=== PATIENT | male | born 1995 | race Caucasian/White ===

== ENCOUNTER 2016-07-22 04:41 | Emergency (ER) | payer BC ==
[2016-07-22 04:59] VITALS: BP 148/118
[2016-07-22] MEDS ORDERED: Diphth/Teta/Acell Pertusis* 0.5 ML VIAL ** FOR 6 WKS TO 7 YRS OLD IM ONE (05:36)
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
== END 2016-07-22 05:50 | disposition home or self-care (01) ==
LOC: ED 04:41
DX: S60.519A Abrasion of unspecified hand, initial encounter (principal); V49.9XXA Car occupant (driver) (passenger) injured in unspecified traffic accident, initial encounter; Y93.9 Activity, unspecified; Y92.89 Other specified places as the place of occurrence of the external cause; Y99.9 Unspecified external cause status
CPT/HCPCS: 96372; 99282

== ENCOUNTER 2016-10-07 08:02 | Emergency (ER) | payer BC ==
[2016-10-07 08:10] VITALS: BP 131/69
[2016-10-07] MEDS ORDERED: Tetan/Diph/Pertus SYR(Tdap)* 0.5 ML SYR(BOOSTRIX) use SYR IM ONE (08:17)
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
[2016-10-07] MEDS ORDERED: Ibuprofen TAB* 400 MG PO ONE (08:20)
--- NOTE | 2016-10-07 08:50 | RAD ---
HISTORY: Swelling pain of distal right radius COMPARISONS: None VIEWS: 3, Frontal, lateral, and oblique views of the right wrist FINDINGS: BONE DENSITY: Normal. BONES: There is no displaced fracture. JOINTS: There is no arthropathy. ALIGNMENT: There is no dislocation. SOFT TISSUES: Unremarkable. OTHER FINDINGS: None. IMPRESSION: NO ACUTE OSSEOUS INJURY. IF SYMPTOMS PERSIST, RECOMMEND REPEAT IMAGING.
--- NOTE | 2016-10-07 08:51 | RAD ---
HISTORY: Swelling, pain, distal radius trauma of right wrist and hand COMPARISONS: None VIEWS: 4, Frontal, lateral, and oblique views of the right hand FINDINGS: BONE DENSITY: Normal. BONES: There is no displaced fracture. JOINTS: There is no arthropathy. ALIGNMENT: There is no dislocation. SOFT TISSUES: Unremarkable. OTHER FINDINGS: None. IMPRESSION: NO ACUTE OSSEOUS INJURY. IF SYMPTOMS PERSIST, RECOMMEND REPEAT IMAGING.
[2016-10-07] MEDS ORDERED: Lidocaine 2% PF * 5 ML VIAL INJ ONE (09:00)
== END 2016-10-07 09:52 | disposition home or self-care (01) ==
LOC: UCCORT 08:02
DX: S60.221A Contusion of right hand, initial encounter (principal); V89.9XXA Person injured in unspecified vehicle accident, initial encounter; V98.8XXA Other specified transport accidents, initial encounter; Y93.I9 Activity, other involving external motion; Z23 Encounter for immunization
CPT/HCPCS: 90471; 90715; 99213; A9270-GY; G0463

== ENCOUNTER 2017-01-22 21:15 | Emergency (ER) | payer BC ==
[2017-01-22 22:19] VITALS: BP 164/99
[2017-01-22] MEDS ORDERED: Clindamycin CAP* 150 MG PO ONE (22:41)
[2017-01-22] MEDS ORDERED: Ketorolac INJ* 60 MG/2 ML VIAL IM ONE (22:42)
--- NOTE | 2017-01-22 22:53 | UC ---
Throat Pain/Nasal Mikhail HPI - HPI Summary HPI Summary: SORE THROAT AND TONSIL SWELLING FOR FIVE DAYS. PAIN WITH SWALLOWING. RIGHT SIDE WORSE THAN LEFT. CHILLS HOT FLASHES. - History of Current Complaint Chief Complaint: UCGeneralIllness Stated Complaint: SORE THROAT Time Seen by Provider: 01/22/17 22:12 Hx Obtained From: Patient Onset/Duration: Gradual Onset, Lasting Days, Worse Since - PROGRESSIVE Severity: Moderate Cough: None Associated Signs & Symptoms: Positive: Dysphagia, Hoarseness - Epiglottits Risk Factors Epiglottis Risk Factors: Negative - Allergies/Home Medications Allergies/Adverse Reactions: Allergies Allergy/AdvReac Type Severity Reaction Status Date / Time No Known Allergies Allergy Verified 01/22/17 22:19 Home Medications: Home Medications Ibuprofen TAB* [Motrin TAB* 800 MG] 800 mg PO ONCE 01/22/17 [History Confirmed 01/22/17] PMH/Surg Hx/FS Hx/Imm Hx Previously Healthy: Yes - Surgical History Surgical History: None - Family History Known Family History: Positive: None, Respiratory Disease - mother [place] lung Negative: Diabetes - Social History Occupation: Employed Full-time Lives: With Family Alcohol Use: Weekly Alcohol Amount: 4-5 drinks on average Substance Use Type: None Substance Use Comment - Amount & Last Used: smoke a bowl earlier tonight Smoking Status (MU): Current Some Day Smoker Type: Cigars Cessation Counseling: Patient Advised to Stop - Immunization History Most Recent Tetanus Shot: unknown Review of Systems Constitutional: Chills, Fatigue Skin: Negative Eyes: Negative ENT: Sore Throat Respiratory: Negative Cardiovascular: Negative Gastrointestinal: Negative Genitourinary: Negative Motor: Negative Neurovascular: Negative Musculoskeletal: Negative Neurological: Negative Psychological: Negative Is Patient Immunocompromised?: No All Other Systems Reviewed And Are Negative: Yes Physical Exam Triage Information Reviewed: Yes Appearance: Well-Nourished, Ill-Appearing, Pain Distress - MODERATE Vital Signs: Initial Vital Signs Temp 98.3 F 01/22/17 22:16 Pulse 118 01/22/17 22:16 Resp 18 01/22/17 22:16 BP 164/99 01/22/17 22:16 Pulse Ox 100 01/22/17 22:16 Eye Exam: Normal ENT: Positive: Pharyngeal erythema, TMs normal, Tonsillar swelling - RIGHT > LEFT; AIRWAY PATENT, TONSILS LARGE BUT NOT TOUCHING., Tonsillar exudate Dental Exam: Normal Neck exam: Normal Neck: Positive: Supple, Nontender, No Lymphadenopathy. Negative: Nuchal Rigidity, Tenderness @ Respiratory Exam: Normal Respiratory: Positive: Chest non-tender, Lungs clear, Normal breath sounds, No respiratory distress, No accessory muscle use Cardiovascular Exam: Normal Cardiovascular: Positive: RRR, No Murmur, Pulses Normal Abdominal Exam: Normal Abdomen Description: Positive: Nontender, No Organomegaly Musculoskeletal Exam: Normal Musculoskeletal: Positive: Strength Intact, ROM Intact Neurological Exam: Normal Psychological Exam: Normal Psychological: Positive: Normal Response To Family Skin Exam: Normal Throat Pain/Nasal Course/Dx - Course Course Of Treatment: DUE TO DYSYMMETRY AND SIZE OF TONSILLAR SWELLING, I ELECTED TO START PATIENT ON CLINDAMYCIN AND ADVISED HIM TO FOLLOW UP WITH ED IMMEDIATELY OR CALL 911 IF SYMPTOMS CONTINUE, IF TONSILLAR SWELLING CONTINUES OR IF NEW SYMPTOMS DEVELOP. PATIENT AGREED WITH PLAN. - Differential Dx/Diagnosis Differential Diagnosis/HQI/PQRI: Mononucleosis, Peritonsillar Abscess, Pharyngitis, Tonsillitis, URI Provider Diagnoses: TONSILLITIS Discharge - Discharge Plan Condition: Stable Disposition: HOME Prescriptions: Clindamycin Cap(NF) [Clindamycin Cap 300 mg Cap(NF)] 300 mg PO TID #30 cap Patient Education Materials: Peritonsillar Abscess (ED), Tonsillitis (ED) Forms: *Work Release Referrals: Sandra Nguyen MD [Primary Care Provider] - Additional Instructions: PLEASE SEEK IMMEDIATE EVALUATION AT THE EMERGENCY DEPARTMENT IF YOUR CONDITION WORSENS OR IF NEW SYMPTOMS DEVELOP.
== END 2017-01-22 23:06 | disposition home or self-care (01) ==
LOC: UCCORT 21:15
DX: J03.90 Acute tonsillitis, unspecified (principal); Z72.0 Tobacco use
CPT/HCPCS: 87651; 96372; 99212; A9270-GY; G0463; J1885

== ENCOUNTER 2017-10-05 18:59 | Emergency (ER) | payer BC ==
[2017-10-05 19:20] VITALS: BP 149/89
--- NOTE | 2017-10-05 19:32 | ED ---
Lower Extremity - HPI Summary HPI Summary: 21 yr old male with bilateral foot pain, right greater than left foot, right ankle pain. Onset yesterday when a ladder kicked out from him and he fell about 6 feet, landing on his feet and twisting the right ankle. He waited a day hoping would get better, but he has a lot of swelling to the right ankle and foot now. Pain is moderate, and worse with weight bearing. he denies leg , hip, pelvis, back, chest, neck and head pain. no LOC. - History of Current Complaint Chief Complaint: UCLowerExtremity Stated Complaint: RICHI FOOT INJURY Time Seen by Provider: 10/05/17 19:17 Pain Intensity: 8 - Allergies/Home Medications Allergies/Adverse Reactions: Allergies Allergy/AdvReac Type Severity Reaction Status Date / Time No Known Allergies Allergy Verified 10/05/17 19:11 PMH/Surg Hx/FS Hx/Imm Hx Endocrine/Hematology History: Denies: Hx Thyroid Disease Cardiovascular History: Denies: Hx Hypertension Respiratory History: Denies: Hx Asthma GI History: Denies: Hx Ulcer Neurological History: Denies: Hx Transient Ischemic Attacks (TIA) - Surgical History Surgery Procedure, Year, and Place: WISDOM TEETH EXTRACTIONS - Immunization History Date of Tetanus Vaccine: unk Date of Influenza Vaccine: none Infectious Disease History: No Infectious Disease History: Denies: Hx Clostridium Difficile, Hx Hepatitis, Hx Human Immunodeficiency Virus (HIV), Hx of Known/Suspected MRSA, Hx Shingles, Hx Tuberculosis, Hx Known/ Suspected VRE, Hx Known/Suspected VRSA, History Other Infectious Disease, Traveled Outside the [place] in Last 30 Days - Family History Known Family History: Positive: None, Respiratory Disease - mother [place] lung Negative: Diabetes - Social History Alcohol Use: Occasionally Alcohol Amount: 4-5 drinks on average Substance Use Type: Reports: Marijuana Substance Use Comment - Amount & Last Used: smoke a bowl earlier tonight Smoking Status (MU): Never Smoked Tobacco Type: Cigars Amount Used/How Often: 1 CAN PER WEEK Review of Systems Constitutional: Negative Positive: Other - bilateral foot and right ankle pain Positive: Bruising - right ankle Negative: Headache, Weakness, Numbness Psychological: Normal All Other Systems Reviewed And Are Negative: Yes Physical Exam Triage Information Reviewed: Yes Vital Signs On Initial Exam: Initial Vitals Temp Pulse Resp BP Pulse Ox 99.3 F 104 17 149/89 98 10/05/17 19:12 10/05/17 19:12 10/05/17 19:12 10/05/17 19:12 10/05/17 19:12 Vital Signs Reviewed: Yes Appearance: Positive: Well-Appearing, No Pain Distress Skin: Positive: Warm, Other - bruising right ankle medial and lateral malleolus areas Head/Face: Positive: Normal Head/Face Inspection Eyes: Positive: EOMI ENT: Positive: Normal ENT inspection Neck: Positive: Nontender Respiratory/Lung Sounds: Positive: Clear to Auscultation, Breath Sounds Present Cardiovascular: Positive: RRR, Pulses are Symmetrical in both Upper and Lower Extremities - pulses present both feet, and neurovasc intact feet.. Negative: Murmur Abdomen Description: Positive: Nontender Musculoskeletal: Positive: Other - right ankle with significant swelling to the right ankle, and foot with bruising and swelling. The patient has tenderness over the mid foot left . Ankle tender over the lateral and medial malleolus on the right leg with significant STS. Neurological: Positive: Sensory/Motor Intact, Alert, Oriented to Person Place, Time, CN Intact II-III Psychiatric: Positive: Normal - Mónica Coma Scale Best Eye Response: 4 - Spontaneous Best Motor Response: 6 - Obeys Commands Best Verbal Response: 5 - Oriented Coma Scale Total: 15 Procedures - Splinting Location: right leg, ankle foot Hand-Made Type: orthoglass Splint: posterior splint Pre-Proc Neuro Vasc Exam: normal Post-Proc Neuro Vasc Exam: normal Diagnostics - Vital Signs Vital Signs Temp Pulse Resp BP Pulse Ox 10/05/17 19:12 99.3 F 104 17 149/89 98 - Laboratory Lab Statement: Any lab studies that have been ordered have been reviewed, and results considered in the medical decision making process. - Radiology bilateral foot, right ankle and tibfib Xray Interpretation: Positive (See Comments) - medial malleolus fracture by rad with STS By my reading also a talus fracture. Radiology Interpretation Completed By: Radiologist Lower Extremity Course/Dx - Course Course Of Treatment: Case DW Dr Barnes, and I relayed that I feel the patient has a talus fracture as well as medial malleolus fracture. She recommends a posterior splint with some pading. and follow up with her on Sunday. ICe and elevation. - Diagnoses Provider Diagnoses: Fracture of talus of right ankle, closed, Nondisplaced fracture, Fx medial malleolus-closed, Hypertension Discharge - Sign-Out/Discharge Documenting (check all that apply): Discharge/Admit/Transfer - Discharge Plan Condition: Good Disposition: HOME Patient Education Materials: Talar Fracture in Adults (ED), Ankle Fracture (ED) , Splint Care (ED), Hypertension (ED) Referrals: Sandra Nguyen MD [Primary Care Provider] - 2 Days Zamzam Barnes MD [Medical Doctor] - 10/09/17 Additional Instructions: Be sure to keep your foot elevated above the level of heart/chin. If you get increased pain, numbness in foot, or any worsening discomfort you should go to the ER for further evaluation and treatment. - Billing Disposition and Condition Condition: GOOD Disposition: HOME
--- NOTE | 2017-10-05 20:08 | RAD ---
Indication: Pain post 10 foot fall from ladder. Comparison: Foot radiographs of the same date. Technique: AP, mortise, and lateral views RIGHT ankle. Report: Nondisplaced fracture at the medial malleolus peripherally. Additionally there are small ossific fragments at the expected course of the deltoid ligament. The ankle mortise remains congruent. Talocrural joint effusion. Significant soft tissue swelling over both the medial and lateral malleoli. IMPRESSION: Nondisplaced medial malleolus fracture. No definitive additional fracture evident. Findings suspicious for medial and lateral supporting ligament injuries.
--- NOTE | 2017-10-05 20:12 | RAD ---
Indication: Bilateral feet pain post 10 foot fall from ladder. Medial malleolus fracture of the RIGHT ankle documented on dedicated ankle radiographs. Comparison: RIGHT ankle exam of the same day. Technique: AP, lateral, and oblique views of the bilateral feet. REPORT AND IMPRESSION: RIGHT foot: No fracture of the RIGHT foot evident aside from the medial malleolus fracture described in the dedicated RIGHT ankle exam of the same date. The calcaneus appears normal in morphology. Normal articular alignment. Significant soft tissue swelling about the ankle through mid foot. LEFT foot: Normal articular alignment. Negative for fracture of the calcaneus or remainder of the LEFT foot. Unremarkable soft tissue contours.
--- NOTE | 2017-10-05 20:28 | RAD ---
Indication: Medial malleolus fracture post fall 10 feet from ladder. Comparison: RIGHT ankle radiographs of the same date. Technique: AP and lateral views RIGHT lower leg. REPORT AND IMPRESSION: Nondisplaced medial malleolus fracture noted as described in the dedicated ankle exam of the same date. Negative for additional tibial or fibular fracture. Normal articular alignment. Soft tissue swelling distally.
== END 2017-10-05 21:55 | disposition home or self-care (01) ==
LOC: UCCORT 18:59
DX: S92.101A Unspecified fracture of right talus, initial encounter for closed fracture (principal); S82.54XA Nondisplaced fracture of medial malleolus of right tibia, initial encounter for closed fracture; W11.XXXA Fall on and from ladder, initial encounter; Y93.9 Activity, unspecified; Y92.9 Unspecified place or not applicable; I10 Essential (primary) hypertension; F17.220 Nicotine dependence, chewing tobacco, uncomplicated
CPT/HCPCS: 99211; G0463

== ENCOUNTER 2017-12-01 21:38 | Emergency (ER) | payer BC ==
[2017-12-01] MEDS ORDERED: diPHENhydraMINE IV* 50 MG/ML 1 ml VIAL (BENADRYL) IM ONE (22:07)
[2017-12-01] MEDS ORDERED: Haloperidol INJ IV/IM* 5 MG/ML AMP IM ONE (22:07)
[2017-12-01] MEDS ORDERED: LORazepam INJ* 2 MG/ML 1 ML VIAL IV PUSH ONE (22:07)
[2017-12-01 22:47] LABS: ABS Basophils 0 10^3/ul (0-0.2); ABS Eosinophils 0.1 10^3/ul (0-0.6); ABS Lymphocytes 1.8 10^3/ul (1.0-4.8); ABS Monocytes 0.6 10^3/ul (0-0.8); ABS Neutrophils 8.9 10^3/ul (1.5-7.7); ABS Nucleated RBC 0 10^3/ul; Eosinophil % 0.7 % (0-6); Hematocrit 41 % (42-52); Lymphocyte % 15.5 % (25-47); Mean Corpuscular HGB Conc 34 g/dl (31-36); Mean Corpuscular Hemoglobin 29 pg (27-31); Mean Corpuscular Volume 84 fL (80-94); Mean Platelet Volume 8.7 um3 (7.4-10.4); Nucleated Red Blood Cells % 0; Platelet Count 214 10^3/ul (150-450); Red Cell Distribution Width 13 % (10.5-15); White Blood Count 11.3 10^3/ul (3.5-10.8)
[2017-12-01 23:01] LABS: EGFR Non-African American 98.6 (>60)
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
--- OUTSIDE RECORDS SUMMARY | 2017-12-02 06:13 | XMS REPORT ---
:1995 External Reference #:[id number] Author Organization [facility] Address [address] [place] [address] Phone [phone] Care Team Providers Name Role Phone Sanrda Nguyen MD Primary Care Physician Unavailable Payers Type Date Identification Numbers Payment Provider Subscriber Commercial Effective: Policy Number: [id number] [employer] Abarca 2017 PayID: [id number] [place] [id number] Problems Date Description Provider Status Onset: 10/10/2017 Closed fracture of medial malleolus Escobar Herman MD Active Social History Type Date Description Comments Smoking Patient has never smoked Currently chews tobacco Allergies, Adverse Reactions, Alerts Date Description Reaction Status Severity Comments 10/10/2017 NKDA active Medications Medication Date Status Form Strength Qnty SIG Indications Ordering Provider Ibu Active Tablets 800mg prn Unknown Vital Signs Date Vital Result Comment 11/26/2017 Height 71 inches 5'11" Weight 185.00 lb Heart Rate 82 /min Respiratory Rate 16 /min Pain Level 0 BMI (Body Mass Index) 25.8 kg/m2 10/26/2017 Height 71 inches 5'11" Weight 185.00 lb Heart Rate 76 /min BP Systolic 126 mmHg BP Diastolic 74 mmHg Respiratory Rate 12 /min Body Temperature 98.8 F Pain Level 3 BMI (Body Mass Index) 25.8 kg/m2 10/10/2017 Height 71 inches 5'11" Weight 185.00 lb Heart Rate 72 /min BP Systolic Sitting 124 mmHg BP Diastolic Sitting 80 mmHg Respiratory Rate 16 /min Pain Level 4 BMI (Body Mass Index) 25.8 kg/m2 Results Description No Information Procedures Date CPT Code Description Status 10/10/2017 57598 application of short leg splint Completed Encounters Type Date Location Provider CPT E/M Dx Office Visit 10/26/2017 [place] [address] S82.54xA 10:15a Of [facility] W11.xxxA Office Visit 10/10/2017 2:30p [facility] [address] S82.54xA Of [facility] Plan of Care Future Appointment(s):12/31/2017 1:00 pm - [facility]/26/2017 - Escobar Herman [id number] Nondisp fx of medial malleolus of right tibia, initNew Xrays:Ankle Right 3+VWSFollow up:Follow Up: 4 weeks
[2017-12-02 07:00] VITALS: BP 138/87
== END 2017-12-02 07:00 | disposition home or self-care (01) ==
LOC: ED 21:38
DX: F12.10 Cannabis abuse, uncomplicated (principal); F19.10 Other psychoactive substance abuse, uncomplicated
CPT/HCPCS: 36415; 80053; 80185; 80320; 80329; 84443; 85025; 96372; 96374; 99285; G0480; J1200; J1630; J2060